=== PATIENT | male | born 1940 | race Caucasian/White ===

== ENCOUNTER 2022-12-17 18:22 | Inpatient (IN) | payer OTHER, BC ==
[2022-12-17 21:15] LABS: EPI CELLS 4 /uL (0-25.1); HYALINE CASTS 1 /uL (0-3.1); URINE APPEARANCE CLEAR; URINE BACTERIA 2 /uL (0-1359); URINE BILIRUBIN NEGATIVE (NEGATIVE); URINE COLOR YELLOW; URINE GLUCOSE (UA) 3+ (NEGATIVE); URINE KETONE TRACE (NEGATIVE); URINE LEUK ESTERASE NEGATIVE (NEGATIVE); URINE NITRITE NEGATIVE (NEGATIVE); URINE PROTEIN 2+ (NEGATIVE); URINE UROBILINOGEN 0.2 mg/dL (0.2-1.0); URINE WBC 5 /uL (0-25.8)
[2022-12-17 21:31] LABS: ALBUMIN 2.7 g/dl (3.4-5.0); BLOOD UREA NITROGEN 33.3 mg/dL (7-18); CALCIUM 8.3 mg/dL (8.5-10.1)
[2022-12-17 21:34] LABS: CREATININE 1.8 mg/dL (0.55-1.3)
[2022-12-17 21:36] LABS: BILIRUBIN,TOTAL 1.1 mg/dL (0.2-1); TOT PROT 6.9 g/dl (6.4-8.2)
[2022-12-17 21:48] LABS: BASO % 0.4 % (0-2.0); HEMATOCRIT 41.5 % (35.4-49); LYMPH % 2.3 % (8-40); MCH 30.9 pg (25.7-33.7); MCHC 33.6 g/dl (32.0-35.9); MEAN CELL VOLUME 91.8 fl (80-96); MEAN PLT VOLUME 7.5 fl (7.5-11.1); MONO % 4.9 % (3.8-10.2); NEUT % 92.4 % (42.8-82.8); PLATELET COUNT 175 10^3/uL (134-434); RBC 4.52 M/mm3 (4.00-5.60); RDW 13.9 % (11.9-15.9); WHITE BLOOD COUNT 20.5 K/mm3 (4.0-10.0)
[2022-12-17 21:51] LABS: URINE RBC 33 /uL (0-23.9)
[2022-12-17] MEDS ORDERED: SODIUM CHLORIDE 0.9% 1000 ML INFUS.BAG IV ONE (21:52)
[2022-12-17 21:53] LABS: INR 1.17 (0.83-1.09); PROTHROMBIN TIME (PATIENT) 13.6 SEC (9.7-13.0)
[2022-12-17 21:55] LABS: ACTIVATED PTT 29.7 SECONDS (25.2-36.5)
[2022-12-17 23:26] LABS: CALCIUM 8.7 mg/dL (8.5-10.1)
[2022-12-17 23:27] LABS: ALBUMIN 3.1 g/dl (3.4-5.0); BLOOD UREA NITROGEN 33.4 mg/dL (7-18)
[2022-12-17 23:30] LABS: CREATININE 1.8 mg/dL (0.55-1.3)
[2022-12-17 23:32] LABS: TOT PROT 7.3 g/dl (6.4-8.2)
[2022-12-18] MEDS ORDERED: SODIUM CHLORIDE 0.9% 500 ML INFUS.BAG IV ONE (02:18)
[2022-12-18] MEDS ORDERED: LIDOCAINE HCL 2% JELLY 6 ML TP ONE (02:28)
[2022-12-18 04:59] VITALS: BMI 23.7
[2022-12-18] MEDS: SODIUM CHLORIDE 1,000 ML IV SCH (06:12)
[2022-12-18 08:58] LABS: HEMATOCRIT 33.4 % (35.4-49); HEMOGLOBIN 11.3 GM/dL (11.7-16.9); MCH 30.5 pg (25.7-33.7); MCHC 33.9 g/dl (32.0-35.9); MEAN CELL VOLUME 90.1 fl (80-96); MEAN PLT VOLUME 7.2 fl (7.5-11.1); PLATELET COUNT 141 10^3/uL (134-434); RBC 3.71 M/mm3 (4.00-5.60); RDW 13.9 % (11.9-15.9); WHITE BLOOD COUNT 14.9 K/mm3 (4.0-10.0)
[2022-12-18 09:38] LABS: BLOOD UREA NITROGEN 30.3 mg/dL (7-18); CALCIUM 7.9 mg/dL (8.5-10.1); MAGNESIUM 1.9 mg/dL (1.8-2.4)
[2022-12-18] MEDS: LISINOPRIL 5 MG TABLET PO SCH (09:39)
[2022-12-18] MEDS: TAMSULOSIN HCL 0.4 MG CAP PO SCH (09:39)
[2022-12-18 09:41] LABS: CREATININE 1.4 mg/dL (0.55-1.3); PHOSPHOROUS 2.8 mg/dL (2.5-4.9)
[2022-12-18 09:44] LABS: BILIRUBIN,TOTAL 0.8 mg/dL (0.2-1); TOT PROT 5.6 g/dl (6.4-8.2)
[2022-12-18] MEDS ORDERED: ENOXAPARIN NA (PORCINE) 40 MG/0.4 ML DISP.SYRIN SQ SCH (10:00)
[2022-12-18 10:06] LABS: ALBUMIN 2.3 g/dl (3.4-5.0)
[2022-12-18] MEDS ORDERED: VANCOMYCIN/WATER 1250 MG 1,250 MG/250 ML BAG IVPB SCH (17:15)
[2022-12-18] MEDS ORDERED: MELATONIN 5 MG TABLETS PO PRN (19:02)
[2022-12-18] MEDS: INSULIN SLIDING SCALE (NOVOLOG) 1 VIAL SQ SCH ×2 (19:58→22:58)
[2022-12-18] MEDS: CEFTRIAXONE 2 GM in DEXTROSE 5%-WATER 100 ML IVPB SCH (20:01)
[2022-12-18] MEDS: SODIUM CHLORIDE 0.45% 1,000 ML IV SCH (20:03)
[2022-12-18] MEDS: ATORVASTATIN CA 40 MG TABLET (FP) PO SCH (22:44)
[2022-12-19] MEDS: SODIUM CHLORIDE 1,000 ML IV SCH (07:57)
[2022-12-19] MEDS: INSULIN SLIDING SCALE (NOVOLOG) 1 VIAL SQ SCH ×4 (07:57→23:01)
[2022-12-19 09:11] LABS: BASO % 0.2 % (0-2.0); EOS % 0.8 % (0-4.5); HEMATOCRIT 31.6 % (35.4-49); HEMOGLOBIN 10.7 GM/dL (11.7-16.9); LYMPH % 6.3 % (8-40); MCH 30.7 pg (25.7-33.7); MCHC 33.9 g/dl (32.0-35.9); MEAN CELL VOLUME 90.7 fl (80-96); MEAN PLT VOLUME 7.1 fl (7.5-11.1); MONO % 7.3 % (3.8-10.2); NEUT % 85.4 % (42.8-82.8); PLATELET COUNT 155 10^3/uL (134-434); RBC 3.49 M/mm3 (4.00-5.60); RDW 13.5 % (11.9-15.9); WHITE BLOOD COUNT 11.6 K/mm3 (4.0-10.0)
[2022-12-19 10:05] LABS: CALCIUM 7.7 mg/dL (8.5-10.1)
[2022-12-19 10:07] LABS: ALBUMIN 2.1 g/dl (3.4-5.0); BLOOD UREA NITROGEN 29.6 mg/dL (7-18)
[2022-12-19 10:10] LABS: CREATININE 1.3 mg/dL (0.55-1.3)
[2022-12-19 10:11] LABS: BILIRUBIN,TOTAL 0.6 mg/dL (0.2-1); TOT PROT 5.4 g/dl (6.4-8.2)
[2022-12-19] MEDS: TAMSULOSIN HCL 0.4 MG CAP PO SCH ×2 (10:25→22:53)
[2022-12-19] MEDS: LISINOPRIL 5 MG TABLET PO SCH (10:25)
[2022-12-19] MEDS: CEFTRIAXONE 2 GM in DEXTROSE 5%-WATER 100 ML IVPB SCH (10:25)
[2022-12-19] MEDS: HEPARIN NA (PORCINE) 5,000 UNITS/ML 1ML VIAL SQ SCH ×2 (10:25→22:53)
[2022-12-19] MEDS ORDERED: ACETAMINOPHEN 1000 MG/100 ML BAG IVPB ONE (10:30)
[2022-12-19] MEDS: LIDOCAINE 5% TOPICAL PATCH TP SCH (11:40)
[2022-12-19] MEDS: VANCOMYCIN/WATER FOR INJ (PEG) 1,000 MG/200 ML BAG IVPB SCH (14:06)
[2022-12-19] MEDS: SODIUM CHLORIDE 0.45% 1,000 ML IV SCH ×2 (17:08→22:51)
[2022-12-19] MEDS ORDERED: INSULIN (NOVOLOG) ASPART 100 UNITS/ML 10ML VIAL ONE (17:33)
[2022-12-19] MEDS: LIDOCAINE PATCH REMOVAL MC SCH (22:53)
[2022-12-19] MEDS: ATORVASTATIN CA 40 MG TABLET (FP) PO SCH (22:54)
[2022-12-20] MEDS: VANCOMYCIN/WATER FOR INJ (PEG) 1,000 MG/200 ML BAG IVPB SCH ×2 (01:27→13:20)
[2022-12-20] MEDS: traMADol HCL 50 MG TABLET PO PRN ×2 (02:10→14:16)
[2022-12-20] MEDS: INSULIN SLIDING SCALE (NOVOLOG) 1 VIAL SQ SCH ×4 (06:02→22:47)
[2022-12-20 09:02] LABS: BASO % 0.3 % (0-2.0); HEMATOCRIT 31.5 % (35.4-49); HEMOGLOBIN 10.8 GM/dL (11.7-16.9); LYMPH % 6.3 % (8-40); MCHC 34.3 g/dl (32.0-35.9); MEAN CELL VOLUME 90.3 fl (80-96); MEAN PLT VOLUME 7.2 fl (7.5-11.1); MONO % 7.8 % (3.8-10.2); NEUT % 83.6 % (42.8-82.8); PLATELET COUNT 168 10^3/uL (134-434); RBC 3.49 M/mm3 (4.00-5.60); RDW 13.8 % (11.9-15.9)
[2022-12-20 09:36] LABS: ALBUMIN 2.1 g/dl (3.4-5.0); BLOOD UREA NITROGEN 30.2 mg/dL (7-18); MAGNESIUM 2.1 mg/dL (1.8-2.4)
[2022-12-20] MEDS: LISINOPRIL 5 MG TABLET PO SCH (09:39)
[2022-12-20] MEDS: TAMSULOSIN HCL 0.4 MG CAP PO SCH ×2 (09:39→22:36)
[2022-12-20 09:40] LABS: CREATININE 1.4 mg/dL (0.55-1.3); TOT PROT 5.4 g/dl (6.4-8.2)
[2022-12-20 09:42] LABS: BILIRUBIN,TOTAL 1.2 mg/dL (0.2-1)
[2022-12-20] MEDS: CEFTRIAXONE 2 GM in DEXTROSE 5%-WATER 100 ML IVPB SCH (11:11)
[2022-12-20] MEDS: HEPARIN NA (PORCINE) 5,000 UNITS/ML 1ML VIAL SQ SCH ×2 (11:14→22:35)
[2022-12-20] MEDS: LIDOCAINE 5% TOPICAL PATCH TP SCH (11:15)
[2022-12-20] MEDS: SODIUM CHLORIDE 0.45% 1,000 ML IV SCH (12:15)
[2022-12-20] MEDS ORDERED: VANCOMYCIN/WATER FOR INJ (PEG) 1,000 MG/200 ML BAG IVPB SCH (14:00)
[2022-12-20] MEDS: GENTAMICIN INJECTION 70 MG in SODIUM CHLORIDE 100 ML IVPB SCH (14:17)
[2022-12-20] MEDS ORDERED: VANCOMYCIN/WATER 1,250 MG/250 ML BAG (RESTRICTED TO ID ONLY) IVPB SCH (22:00)
[2022-12-20] MEDS: ATORVASTATIN CA 40 MG TABLET (FP) PO SCH (22:35)
[2022-12-20] MEDS: LIDOCAINE PATCH REMOVAL MC SCH (22:36)
[2022-12-21] MEDS ORDERED: SODIUM PHOSPHATE/NA BIPHOS 133 ML ENEMA RC ONE (04:14)
[2022-12-21] MEDS ORDERED: POLYETHYLENE GLYCOL (HEALTHYLAX) 3350 17 GM PACKET PO PRN (04:19)
[2022-12-21] MEDS: INSULIN SLIDING SCALE (NOVOLOG) 1 VIAL SQ SCH ×4 (06:37→21:20)
[2022-12-21 07:23] LABS: EPI CELLS 2 /uL (0-25.1); HYALINE CASTS 0 /uL (0-3.1); URINE APPEARANCE CLEAR; URINE BACTERIA 0 /uL (0-1359); URINE BILIRUBIN NEGATIVE (NEGATIVE); URINE COLOR YELLOW; URINE GLUCOSE (UA) 1+ (NEGATIVE); URINE KETONE NEGATIVE (NEGATIVE); URINE LEUK ESTERASE NEGATIVE (NEGATIVE); URINE NITRITE NEGATIVE (NEGATIVE); URINE PROTEIN TRACE (NEGATIVE); URINE UROBILINOGEN 0.2 mg/dL (0.2-1.0); URINE WBC 8 /uL (0-25.8)
[2022-12-21 08:04] LABS: BASO % 0.1 % (0-2.0); EOS % 0.2 % (0-4.5); HEMATOCRIT 31.1 % (35.4-49); HEMOGLOBIN 10.6 GM/dL (11.7-16.9); MCH 31.5 pg (25.7-33.7); MCHC 34.2 g/dl (32.0-35.9); MEAN CELL VOLUME 92.1 fl (80-96); MEAN PLT VOLUME 7.4 fl (7.5-11.1); MONO % 5.1 % (3.8-10.2); NEUT % 90.6 % (42.8-82.8); PLATELET COUNT 197 10^3/uL (134-434); RBC 3.38 M/mm3 (4.00-5.60); RDW 13.7 % (11.9-15.9); WHITE BLOOD COUNT 12.4 K/mm3 (4.0-10.0)
[2022-12-21 08:12] LABS: ALBUMIN 2.1 g/dl (3.4-5.0); BLOOD UREA NITROGEN 35.4 mg/dL (7-18); CALCIUM 7.8 mg/dL (8.5-10.1)
[2022-12-21 08:15] LABS: CREATININE 1.5 mg/dL (0.55-1.3)
[2022-12-21 08:17] LABS: BILIRUBIN,TOTAL 0.5 mg/dL (0.2-1); TOT PROT 5.4 g/dl (6.4-8.2)
[2022-12-21] MEDS: VANCOMYCIN/WATER 1,250 MG/250 ML BAG (RESTRICTED TO ID ONLY) IVPB SCH (08:27)
[2022-12-21] MEDS: TAMSULOSIN HCL 0.4 MG CAP PO SCH ×2 (08:28→21:09)
[2022-12-21 08:36] LABS: URINE RBC 48.6 /uL (0-23.9)
[2022-12-21] MEDS: LIDOCAINE 5% TOPICAL PATCH TP SCH (11:56)
[2022-12-21] MEDS: POLYETHYLENE GLYCOL (HEALTHYLAX) 3350 17 GM PACKET PO SCH ×2 (11:56→21:09)
[2022-12-21] MEDS: HEPARIN NA (PORCINE) 5,000 UNITS/ML 1ML VIAL SQ SCH ×2 (11:57→21:09)
[2022-12-21] MEDS: LISINOPRIL 5 MG TABLET PO SCH (11:57)
[2022-12-21] MEDS: SODIUM CHLORIDE 0.45% 1,000 ML IV SCH ×2 (12:35→18:10)
[2022-12-21] MEDS: GENTAMICIN INJECTION 70 MG in SODIUM CHLORIDE 100 ML IVPB SCH (14:03)
[2022-12-21] MEDS: ATORVASTATIN CA 40 MG TABLET (FP) PO SCH (21:10)
[2022-12-21] MEDS: LIDOCAINE PATCH REMOVAL MC SCH (21:10)
[2022-12-21] MEDS: DOCUSATE SODIUM 100 MG CAPSULE (FP) PO SCH (21:15)
[2022-12-22] MEDS: INSULIN SLIDING SCALE (NOVOLOG) 1 VIAL SQ SCH ×4 (06:16→22:28)
[2022-12-22 09:17] LABS: BASO % 0.5 % (0-2.0); EOS % 2.8 % (0-4.5); HEMATOCRIT 30.5 % (35.4-49); HEMOGLOBIN 10.6 GM/dL (11.7-16.9); LYMPH % 7.5 % (8-40); MCH 31.8 pg (25.7-33.7); MCHC 34.7 g/dl (32.0-35.9); MEAN CELL VOLUME 91.5 fl (80-96); MEAN PLT VOLUME 7.3 fl (7.5-11.1); MONO % 8.1 % (3.8-10.2); NEUT % 81.1 % (42.8-82.8); PLATELET COUNT 231 10^3/uL (134-434); RBC 3.34 M/mm3 (4.00-5.60); RDW 13.5 % (11.9-15.9); WHITE BLOOD COUNT 9.5 K/mm3 (4.0-10.0)
[2022-12-22] MEDS: TAMSULOSIN HCL 0.4 MG CAP PO SCH ×2 (09:41→22:32)
[2022-12-22] MEDS: LISINOPRIL 5 MG TABLET PO SCH (09:42)
[2022-12-22] MEDS: HEPARIN NA (PORCINE) 5,000 UNITS/ML 1ML VIAL SQ SCH ×2 (09:42→22:29)
[2022-12-22] MEDS: POLYETHYLENE GLYCOL (HEALTHYLAX) 3350 17 GM PACKET PO SCH ×2 (09:42→22:34)
[2022-12-22] MEDS: LIDOCAINE 5% TOPICAL PATCH TP SCH (09:43)
[2022-12-22] MEDS: VANCOMYCIN/WATER 1,250 MG/250 ML BAG (RESTRICTED TO ID ONLY) IVPB SCH (09:43)
[2022-12-22] MEDS: traMADol HCL 50 MG TABLET PO PRN (09:43)
[2022-12-22 09:54] LABS: BLOOD UREA NITROGEN 29.4 mg/dL (7-18)
[2022-12-22 09:55] LABS: ALBUMIN 2.1 g/dl (3.4-5.0)
[2022-12-22 09:58] LABS: CREATININE 1.4 mg/dL (0.55-1.3)
[2022-12-22 09:59] LABS: BILIRUBIN,TOTAL 0.6 mg/dL (0.2-1); TOT PROT 5.5 g/dl (6.4-8.2)
[2022-12-22 10:24] LABS: ERYTHROCYTE SEDIMENTATION RATE 81 mm/hr (0-20)
[2022-12-22] MEDS: GENTAMICIN INJECTION 70 MG in SODIUM CHLORIDE 100 ML IVPB SCH (14:02)
[2022-12-22] MEDS: SODIUM CHLORIDE 0.45% 1,000 ML IV SCH (17:22)
[2022-12-22] MEDS: ACETAMINOPHEN 325 MG TABLET (FP) PO PRN (17:22)
[2022-12-22] MEDS ORDERED: INSULIN (NOVOLOG) ASPART 100 UNITS/ML 10ML VIAL ONE (22:25)
[2022-12-22] MEDS: DOCUSATE SODIUM 100 MG CAPSULE (FP) PO SCH (22:30)
[2022-12-22] MEDS: ATORVASTATIN CA 40 MG TABLET (FP) PO SCH (22:33)
[2022-12-22] MEDS: MELATONIN 5 MG TABLETS PO SCH (22:33)
[2022-12-22] MEDS: LIDOCAINE PATCH REMOVAL MC SCH (22:45)
[2022-12-23] MEDS: INSULIN SLIDING SCALE (NOVOLOG) 1 VIAL SQ SCH ×4 (07:45→21:49)
[2022-12-23 09:19] LABS: BASO % 0.6 % (0-2.0); EOS % 4.1 % (0-4.5); HEMATOCRIT 30.9 % (35.4-49); HEMOGLOBIN 10.6 GM/dL (11.7-16.9); LYMPH % 8.5 % (8-40); MCH 31.6 pg (25.7-33.7); MCHC 34.4 g/dl (32.0-35.9); MEAN CELL VOLUME 92.1 fl (80-96); MEAN PLT VOLUME 7.4 fl (7.5-11.1); MONO % 9.1 % (3.8-10.2); NEUT % 77.7 % (42.8-82.8); PLATELET COUNT 237 10^3/uL (134-434); RBC 3.35 M/mm3 (4.00-5.60); RDW 13.5 % (11.9-15.9); WHITE BLOOD COUNT 8.1 K/mm3 (4.0-10.0)
[2022-12-23] MEDS: LIDOCAINE 5% TOPICAL PATCH TP SCH (09:23)
[2022-12-23] MEDS: LISINOPRIL 5 MG TABLET PO SCH (09:25)
[2022-12-23] MEDS: TAMSULOSIN HCL 0.4 MG CAP PO SCH ×2 (09:25→21:43)
[2022-12-23] MEDS: HEPARIN NA (PORCINE) 5,000 UNITS/ML 1ML VIAL SQ SCH ×2 (09:26→21:54)
[2022-12-23] MEDS: POLYETHYLENE GLYCOL (HEALTHYLAX) 3350 17 GM PACKET PO SCH ×2 (09:38→21:45)
[2022-12-23 09:41] LABS: ALBUMIN 2.1 g/dl (3.4-5.0); BLOOD UREA NITROGEN 28.9 mg/dL (7-18); CALCIUM 8.1 mg/dL (8.5-10.1)
[2022-12-23 09:42] LABS: BILIRUBIN,TOTAL 0.6 mg/dL (0.2-1); TOT PROT 5.6 g/dl (6.4-8.2)
[2022-12-23 09:44] LABS: CREATININE 1.4 mg/dL (0.55-1.3)
[2022-12-23 09:55] LABS: MAGNESIUM 1.9 mg/dL (1.8-2.4)
[2022-12-23] MEDS: VANCOMYCIN/WATER 1,250 MG/250 ML BAG (RESTRICTED TO ID ONLY) IVPB SCH (10:00)
[2022-12-23] MEDS: ASPIRIN COATED 81 MG TABLET.EC PO SCH (11:34)
[2022-12-23] MEDS: GENTAMICIN INJECTION 70 MG in SODIUM CHLORIDE 100 ML IVPB SCH (13:08)
[2022-12-23] MEDS ORDERED: INSULIN (NOVOLOG) ASPART 100 UNITS/ML 10ML VIAL ONE (17:27)
[2022-12-23] MEDS: DOCUSATE SODIUM 100 MG CAPSULE (FP) PO SCH (21:43)
[2022-12-23] MEDS: ATORVASTATIN CA 40 MG TABLET (FP) PO SCH (21:44)
[2022-12-23] MEDS: SODIUM CHLORIDE 0.45% 1,000 ML IV SCH (21:45)
[2022-12-23] MEDS: MELATONIN 5 MG TABLETS PO SCH (21:45)
[2022-12-23] MEDS: LIDOCAINE PATCH REMOVAL MC SCH (21:54)
[2022-12-24] MEDS: traMADol HCL 50 MG TABLET PO PRN ×2 (06:14→21:30)
[2022-12-24] MEDS: INSULIN SLIDING SCALE (NOVOLOG) 1 VIAL SQ SCH ×4 (06:18→21:37)
[2022-12-24] MEDS: VANCOMYCIN/WATER 1,250 MG/250 ML BAG (RESTRICTED TO ID ONLY) IVPB SCH (09:07)
[2022-12-24] MEDS: LISINOPRIL 5 MG TABLET PO SCH (09:09)
[2022-12-24] MEDS: TAMSULOSIN HCL 0.4 MG CAP PO SCH ×2 (09:09→21:33)
[2022-12-24] MEDS: ASPIRIN COATED 81 MG TABLET.EC PO SCH (09:09)
[2022-12-24] MEDS: LIDOCAINE 5% TOPICAL PATCH TP SCH (09:10)
[2022-12-24] MEDS: POLYETHYLENE GLYCOL (HEALTHYLAX) 3350 17 GM PACKET PO SCH ×2 (09:10→21:33)
[2022-12-24] MEDS: HEPARIN NA (PORCINE) 5,000 UNITS/ML 1ML VIAL SQ SCH ×2 (09:10→21:33)
[2022-12-24 09:34] LABS: ALBUMIN 2.2 g/dl (3.4-5.0); BLOOD UREA NITROGEN 27.3 mg/dL (7-18); MAGNESIUM 1.9 mg/dL (1.8-2.4)
[2022-12-24 09:37] LABS: CREATININE 1.4 mg/dL (0.55-1.3)
[2022-12-24 09:39] LABS: BILIRUBIN,TOTAL 0.6 mg/dL (0.2-1); TOT PROT 5.7 g/dl (6.4-8.2)
[2022-12-24 09:46] LABS: BASO % 0.4 % (0-2.0); EOS % 3.5 % (0-4.5); HEMATOCRIT 30.5 % (35.4-49); HEMOGLOBIN 10.7 GM/dL (11.7-16.9); MCHC 35.1 g/dl (32.0-35.9); MEAN PLT VOLUME 7.2 fl (7.5-11.1); MONO % 9.3 % (3.8-10.2); NEUT % 77.8 % (42.8-82.8); PLATELET COUNT 268 10^3/uL (134-434); RBC 3.35 M/mm3 (4.00-5.60); RDW 13.6 % (11.9-15.9); WHITE BLOOD COUNT 8.6 K/mm3 (4.0-10.0)
[2022-12-24] MEDS: GENTAMICIN INJECTION 70 MG in SODIUM CHLORIDE 100 ML IVPB SCH (14:05)
[2022-12-24] MEDS: SODIUM CHLORIDE 0.45% 1,000 ML IV SCH (17:23)
[2022-12-24] MEDS: DOCUSATE SODIUM 100 MG CAPSULE (FP) PO SCH (21:30)
[2022-12-24] MEDS: MELATONIN 5 MG TABLETS PO SCH (21:32)
[2022-12-24] MEDS: ATORVASTATIN CA 40 MG TABLET (FP) PO SCH (21:33)
[2022-12-24] MEDS: LIDOCAINE PATCH REMOVAL MC SCH (21:44)
[2022-12-25] MEDS: traMADol HCL 50 MG TABLET PO PRN (06:27)
[2022-12-25] MEDS: INSULIN SLIDING SCALE (NOVOLOG) 1 VIAL SQ SCH ×4 (06:33→22:02)
[2022-12-25 09:38] LABS: BASO % 0.8 % (0-2.0); EOS % 6.2 % (0-4.5); HEMATOCRIT 30.3 % (35.4-49); HEMOGLOBIN 10.4 GM/dL (11.7-16.9); LYMPH % 9.2 % (8-40); MCH 30.9 pg (25.7-33.7); MCHC 34.5 g/dl (32.0-35.9); MEAN CELL VOLUME 89.7 fl (80-96); MEAN PLT VOLUME 6.8 fl (7.5-11.1); MONO % 8.7 % (3.8-10.2); NEUT % 75.1 % (42.8-82.8); PLATELET COUNT 241 10^3/uL (134-434); RBC 3.37 M/mm3 (4.00-5.60); RDW 13.7 % (11.9-15.9); WHITE BLOOD COUNT 7.3 K/mm3 (4.0-10.0)
[2022-12-25 10:38] LABS: CALCIUM 8.1 mg/dL (8.5-10.1)
[2022-12-25 10:39] LABS: ALBUMIN 2.1 g/dl (3.4-5.0); BLOOD UREA NITROGEN 27.5 mg/dL (7-18)
[2022-12-25 10:43] LABS: CREATININE 1.6 mg/dL (0.55-1.3); TOT PROT 5.7 g/dl (6.4-8.2)
[2022-12-25 10:44] LABS: BILIRUBIN,TOTAL 0.9 mg/dL (0.2-1)
[2022-12-25] MEDS: HEPARIN NA (PORCINE) 5,000 UNITS/ML 1ML VIAL SQ SCH ×2 (13:13→21:49)
[2022-12-25] MEDS: LISINOPRIL 5 MG TABLET PO SCH (13:14)
[2022-12-25] MEDS: LIDOCAINE 5% TOPICAL PATCH TP SCH (13:14)
[2022-12-25] MEDS: TAMSULOSIN HCL 0.4 MG CAP PO SCH ×2 (13:14→21:49)
[2022-12-25] MEDS: ASPIRIN COATED 81 MG TABLET.EC PO SCH (13:14)
[2022-12-25] MEDS: POLYETHYLENE GLYCOL (HEALTHYLAX) 3350 17 GM PACKET PO SCH ×2 (13:19→21:52)
[2022-12-25] MEDS: VANCOMYCIN/WATER 1,250 MG/250 ML BAG (RESTRICTED TO ID ONLY) IVPB SCH (14:25)
[2022-12-25] MEDS: SODIUM CHLORIDE 0.45% 1,000 ML IV SCH ×2 (17:36→21:55)
[2022-12-25] MEDS: DOCUSATE SODIUM 100 MG CAPSULE (FP) PO SCH (21:48)
[2022-12-25] MEDS: ATORVASTATIN CA 40 MG TABLET (FP) PO SCH (21:49)
[2022-12-25] MEDS: MELATONIN 5 MG TABLETS PO SCH (21:49)
[2022-12-25] MEDS: LIDOCAINE PATCH REMOVAL MC SCH (21:52)
[2022-12-26] MEDS: INSULIN SLIDING SCALE (NOVOLOG) 1 VIAL SQ SCH ×4 (07:36→22:11)
[2022-12-26 09:18] LABS: BASO % 0.8 % (0-2.0); EOS % 5.5 % (0-4.5); HEMATOCRIT 31.5 % (35.4-49); LYMPH % 8.2 % (8-40); MCH 31.6 pg (25.7-33.7); MCHC 34.8 g/dl (32.0-35.9); MEAN CELL VOLUME 90.7 fl (80-96); MEAN PLT VOLUME 7.5 fl (7.5-11.1); MONO % 8.2 % (3.8-10.2); NEUT % 77.3 % (42.8-82.8); PLATELET COUNT 290 10^3/uL (134-434); RBC 3.48 M/mm3 (4.00-5.60); RDW 13.6 % (11.9-15.9)
[2022-12-26 09:59] LABS: ALBUMIN 2.3 g/dl (3.4-5.0); BLOOD UREA NITROGEN 28.6 mg/dL (7-18); CALCIUM 8.4 mg/dL (8.5-10.1); MAGNESIUM 1.9 mg/dL (1.8-2.4)
[2022-12-26 10:02] LABS: CREATININE 1.5 mg/dL (0.55-1.3)
[2022-12-26] MEDS: AMINO ACIDS/PROTEIN HYDROLYS 30 ML LIQUID.PKT PO SCH (10:02)
[2022-12-26] MEDS: LISINOPRIL 5 MG TABLET PO SCH (10:02)
[2022-12-26] MEDS: LIDOCAINE 5% TOPICAL PATCH TP SCH (10:03)
[2022-12-26] MEDS: TAMSULOSIN HCL 0.4 MG CAP PO SCH ×2 (10:03→21:45)
[2022-12-26 10:04] LABS: BILIRUBIN,TOTAL 0.6 mg/dL (0.2-1); TOT PROT 5.8 g/dl (6.4-8.2)
[2022-12-26] MEDS: ACETAMINOPHEN 325 MG TABLET (FP) PO PRN (10:05)
[2022-12-26] MEDS: ASPIRIN COATED 81 MG TABLET.EC PO SCH (12:21)
[2022-12-26] MEDS: HEPARIN NA (PORCINE) 5,000 UNITS/ML 1ML VIAL SQ SCH ×2 (12:21→21:44)
[2022-12-26] MEDS: POLYETHYLENE GLYCOL (HEALTHYLAX) 3350 17 GM PACKET PO SCH ×2 (12:21→21:44)
[2022-12-26] MEDS ORDERED: GENTAMICIN IVPB SCH (12:30)
[2022-12-26] MEDS ORDERED: DEXTROSE 5% IVPB SCH (12:30)
[2022-12-26] MEDS ORDERED: WATER IVPB SCH (12:30)
[2022-12-26] MEDS: VANCOMYCIN/WATER FOR INJ (PEG) 1,000 MG/200 ML BAG IVPB SCH (13:54)
[2022-12-26] MEDS: SODIUM CHLORIDE 0.45% 1,000 ML IV SCH (17:08)
[2022-12-26] MEDS: ATORVASTATIN CA 40 MG TABLET (FP) PO SCH (21:45)
[2022-12-26] MEDS: MELATONIN 5 MG TABLETS PO SCH (21:45)
[2022-12-26] MEDS: DOCUSATE SODIUM 100 MG CAPSULE (FP) PO SCH (21:45)
[2022-12-26] MEDS: LIDOCAINE PATCH REMOVAL MC SCH (22:10)
[2022-12-27] MEDS: INSULIN SLIDING SCALE (NOVOLOG) 1 VIAL SQ SCH ×4 (06:40→22:15)
[2022-12-27 09:45] LABS: BASO % 0.4 % (0-2.0); EOS % 2.9 % (0-4.5); HEMOGLOBIN 10.7 GM/dL (11.7-16.9); LYMPH % 5.8 % (8-40); MCH 31.4 pg (25.7-33.7); MCHC 34.6 g/dl (32.0-35.9); MEAN CELL VOLUME 90.7 fl (80-96); MEAN PLT VOLUME 7.2 fl (7.5-11.1); MONO % 6.9 % (3.8-10.2); PLATELET COUNT 283 10^3/uL (134-434); RBC 3.41 M/mm3 (4.00-5.60); RDW 13.6 % (11.9-15.9)
[2022-12-27] MEDS: LIDOCAINE 5% TOPICAL PATCH TP SCH (10:09)
[2022-12-27] MEDS: AMINO ACIDS/PROTEIN HYDROLYS 30 ML LIQUID.PKT PO SCH (10:09)
[2022-12-27] MEDS: ASPIRIN COATED 81 MG TABLET.EC PO SCH (10:09)
[2022-12-27] MEDS: HEPARIN NA (PORCINE) 5,000 UNITS/ML 1ML VIAL SQ SCH ×2 (10:09→21:59)
[2022-12-27] MEDS: TAMSULOSIN HCL 0.4 MG CAP PO SCH ×2 (10:09→21:58)
[2022-12-27] MEDS: LISINOPRIL 5 MG TABLET PO SCH (10:09)
[2022-12-27] MEDS: POLYETHYLENE GLYCOL (HEALTHYLAX) 3350 17 GM PACKET PO SCH ×2 (10:09→21:58)
[2022-12-27 10:11] LABS: ALBUMIN 2.3 g/dl (3.4-5.0); CALCIUM 8.1 mg/dL (8.5-10.1)
[2022-12-27 10:12] LABS: BLOOD UREA NITROGEN 28.2 mg/dL (7-18); MAGNESIUM 1.9 mg/dL (1.8-2.4)
[2022-12-27 10:14] LABS: CREATININE 1.5 mg/dL (0.55-1.3)
[2022-12-27 10:16] LABS: BILIRUBIN,TOTAL 0.7 mg/dL (0.2-1); TOT PROT 5.9 g/dl (6.4-8.2)
[2022-12-27] MEDS: ACETAMINOPHEN 325 MG TABLET (FP) PO PRN (10:27)
[2022-12-27] MEDS: VANCOMYCIN/WATER FOR INJ (PEG) 1,000 MG/200 ML BAG IVPB SCH (14:35)
[2022-12-27] MEDS: GENTAMICIN INJECTION 70 MG in SODIUM CHLORIDE 100 ML IVPB SCH (16:43)
[2022-12-27] MEDS: ATORVASTATIN CA 40 MG TABLET (FP) PO SCH (21:57)
[2022-12-27] MEDS: MELATONIN 5 MG TABLETS PO SCH (21:58)
[2022-12-27] MEDS: DOCUSATE SODIUM 100 MG CAPSULE (FP) PO SCH (21:58)
[2022-12-27] MEDS: LIDOCAINE PATCH REMOVAL MC SCH (21:59)
[2022-12-27] MEDS ORDERED: INSULIN (NOVOLOG) ASPART 100 UNITS/ML 10ML VIAL ONE (22:00)
[2022-12-27] MEDS: SODIUM CHLORIDE 0.45% 1,000 ML IV SCH (23:28)
[2022-12-27 23:37] VITALS: RESP 18
[2022-12-28] MEDS: INSULIN SLIDING SCALE (NOVOLOG) 1 VIAL SQ SCH ×4 (06:22→22:15)
[2022-12-28] MEDS ORDERED: ZOLPIDEM TARTRATE 5 MG TABLET PO PRN (06:27)
[2022-12-28 09:15] LABS: BASO % 0.4 % (0-2.0); EOS % 2.3 % (0-4.5); HEMATOCRIT 32.4 % (35.4-49); HEMOGLOBIN 11.1 GM/dL (11.7-16.9); LYMPH % 6.6 % (8-40); MCH 30.7 pg (25.7-33.7); MCHC 34.3 g/dl (32.0-35.9); MEAN CELL VOLUME 89.4 fl (80-96); MEAN PLT VOLUME 7.2 fl (7.5-11.1); MONO % 7.5 % (3.8-10.2); NEUT % 83.2 % (42.8-82.8); PLATELET COUNT 286 10^3/uL (134-434); RBC 3.62 M/mm3 (4.00-5.60); RDW 13.8 % (11.9-15.9); WHITE BLOOD COUNT 9.7 K/mm3 (4.0-10.0)
[2022-12-28 09:30] LABS: ALBUMIN 2.4 g/dl (3.4-5.0); BLOOD UREA NITROGEN 24.9 mg/dL (7-18)
[2022-12-28 09:33] LABS: CREATININE 1.4 mg/dL (0.55-1.3)
[2022-12-28 09:35] LABS: BILIRUBIN,TOTAL 0.7 mg/dL (0.2-1); TOT PROT 6.1 g/dl (6.4-8.2)
[2022-12-28] MEDS: LISINOPRIL 5 MG TABLET PO SCH (10:29)
[2022-12-28] MEDS: ASPIRIN COATED 81 MG TABLET.EC PO SCH (10:29)
[2022-12-28] MEDS: POLYETHYLENE GLYCOL (HEALTHYLAX) 3350 17 GM PACKET PO SCH ×2 (10:29→22:00)
[2022-12-28] MEDS: LIDOCAINE 5% TOPICAL PATCH TP SCH (10:29)
[2022-12-28] MEDS: HEPARIN NA (PORCINE) 5,000 UNITS/ML 1ML VIAL SQ SCH ×2 (10:29→22:14)
[2022-12-28] MEDS: TAMSULOSIN HCL 0.4 MG CAP PO SCH ×2 (10:29→22:14)
[2022-12-28] MEDS: AMINO ACIDS/PROTEIN HYDROLYS 30 ML LIQUID.PKT PO SCH (10:31)
[2022-12-28] MEDS ORDERED: INSULIN (NOVOLOG) ASPART 100 UNITS/ML 10ML VIAL ONE (12:15)
[2022-12-28] MEDS: VANCOMYCIN/WATER FOR INJ (PEG) 1,000 MG/200 ML BAG IVPB SCH (12:46)
[2022-12-28] MEDS: GENTAMICIN INJECTION 70 MG in SODIUM CHLORIDE 100 ML IVPB SCH (15:04)
[2022-12-28] MEDS: ACETAMINOPHEN 325 MG TABLET (FP) PO PRN (15:09)
[2022-12-28 19:05] VITALS: BP 104/57; PULSE 60; TEMP 97.6
[2022-12-28] MEDS: DOCUSATE SODIUM 100 MG CAPSULE (FP) PO SCH (22:00)
[2022-12-28] MEDS: ATORVASTATIN CA 40 MG TABLET (FP) PO SCH (22:15)
[2022-12-28] MEDS: LIDOCAINE PATCH REMOVAL MC SCH (22:15)
== END 2022-12-28 23:36 | DRG 871 ==
LOC: JER 18:22 → JERBED 23:22 → OBSVTOIN 12-18 01:28 → J8W 12-18 03:45
PROVIDERS: ADMIT Internal Medicine; ATTEND Nurse Practitioner Family
PROC: 02HV33Z Insertion of Infusion Device into Superior Vena Cava, Percutaneous Approach (ICD-10-PCS; principal; 2022-12-26)
PROC: B548ZZA Ultrasonography of Superior Vena Cava, Guidance (ICD-10-PCS; 2022-12-26)
DX: A41.9 Sepsis, unspecified organism (principal); I33.0 Acute and subacute infective endocarditis; N17.9 Acute kidney failure, unspecified; M00.9 Pyogenic arthritis, unspecified; M62.82 Rhabdomyolysis; I25.10 Atherosclerotic heart disease of native coronary artery without angina pectoris; I25.2 Old myocardial infarction; E11.9 Type 2 diabetes mellitus without complications; H81.399 Other peripheral vertigo, unspecified ear; G25.2 Other specified forms of tremor; D72.829 Elevated white blood cell count, unspecified; R33.8 Other retention of urine; M25.511 Pain in right shoulder; Z79.84 Long term (current) use of oral hypoglycemic drugs; D64.9 Anemia, unspecified; Z88.0 Allergy status to penicillin; B95.2 Enterococcus as the cause of diseases classified elsewhere; N40.0 Benign prostatic hyperplasia without lower urinary tract symptoms; S43.421A Sprain of right rotator cuff capsule, initial encounter; W01.0XXA Fall on same level from slipping, tripping and stumbling without subsequent striking against object, initial encounter; Y93.89 Activity, other specified; Y92.009 Unspecified place in unspecified non-institutional (private) residence as the place of occurrence of the external cause; Y99.8 Other external cause status
CPT/HCPCS: 0241U-QW; 36415; 36569; 70450-TC; 71045-TC-FY; 71250-TC; 72125-TC; 72141-TC; 72170-TC-FY; 73200-TC-RT; 73218-TC-RT; 73502-TC-RT-FY; 73700-TC-RT; 74176-TC; 76700-TC; 76775-TC; 76882-TC-RT-FY; 80048; 80053; 80170; 81003; 82550; 82553; 82570; 82962; 83036; 83735; 84100; 84300; 84484; 85025; 85027; 85610; 85651; 85730; 86140; 87040; 87086; 87186; 93005; 93010; 93306-TC; 94010; 97116-GP; 97161-GP; 99285-25; C9803-CS; G0378; G0480; J1644; U0003; U0005